=== PATIENT | male | born 1955 | race Caucasian/White ===

== ENCOUNTER 2024-09-28 08:30 | Emergency (ER) | payer MEDICARE ==
[2024-09-28] MEDS: Lidocaine/EPINEPHrine/Tetracaine Soln 5 ML Each TOP ONE (09:05)
[2024-09-28] MEDS: Diphtheria,Pertussis(Acell),Tetanus Vaccine 0.5 ML Syringe IM ONE (09:05)
[2024-09-28] MEDS: Bacitracin Oint 1 GM U/D Packet TOP ONE (09:40)
== END 2024-09-28 09:38 | disposition home or self-care (01) ==
LOC: DL.ED 08:30
DX: S81.811A Laceration without foreign body, right lower leg, initial encounter (principal); S81.812A Laceration without foreign body, left lower leg, initial encounter; Z23 Encounter for immunization; W22.8XXA Striking against or struck by other objects, initial encounter; Y93.89 Activity, other specified
CPT/HCPCS: 12002; 90471; 90715; 99283-25; A9270-GY